=== PATIENT | male | born 1995 | race Caucasian/White ===

== ENCOUNTER 2022-08-13 18:00 | Emergency (ER) | payer OTHER, SELFPAY ==
[2022-08-13 18:07] VITALS: BP 110/62; PULSE 72; RESP 18; TEMP 36.7; O2SAT 98; BMI 23.9
--- NOTE | 2022-08-13 18:27 | PC.NURSE ---
this nurse called [facility] and they state that pt was given dc instructions that the case preparer and liner will be calling him on monday for follow up appt pt was at [facility] fac[facility] since 0 today and multiple facilities were called to attempt to get patient tx and he was denied at each facility pt was instructed to answer the phone on monday and it would be a case preparer and liner calling him
--- NOTE | 2022-08-13 18:39 | ED.PSYCH1 ---
HPI - Psych General Chief Complaint: Psychiatric Symptoms Stated Complaint: SUIDICAL Time Seen by Provider: 08/13/22 18:38 Source: Reports patient Mode of arrival: ambulance Limitations: Reports no limitations History of Present Illness HPI Narrative: patient says that he is anxious and needs to see a counselor. He was just evaluated at [facility] and did not meet criteria for admission and was discharged home an hour ago. he then apparently called 911 from somewhere in [place] and demanded to be brought to our ED for evaluation. he told us that he is not suicidal or homicidal. he said that he got out of [place] [facility], uses drugs and can't take care of myself and need to live in a psychiatric hospital . [facility] was called by one of our ED nurses and we learned that the patient did not meet criteria for admission after a three day stay and he was discharged and given a ride back to [place]. he is supposed to receive a call from [facility] counseling regarding a follow up appointment. He said that he has intermittently attended counseling and been in and out of [place] due to drug use/substance abuse. Related Data Allergies Allergy/AdvReac Type Severity Reaction Status Date / Time penicillin G AdvReac Intermediate Verified 08/13/22 18:07 Exam Narrative Exam Narrative: Nurses notes and vital signs reviewed and patient is not hypoxic. AFEBRILE General: Well-appearing and in no apparent distress. Skin: Warm, dry, no pallor noted. No rash. Head: Normocephalic, atraumatic. Neck: Supple, non-tender. Eye: Pupils are equal, round and EOMI. No scleral icterus. Ears, Nose, Mouth, and Throat: Oral mucosa is moist Cardiovascular: Regular Rate and Rhythm without murmur, gallop or rub. Respiratory: No accessory muscle use or respiratory distress. Lungs are clear to auscultation, no wheezing, rales or rhonchi Back: No midline thoracic or lumbar vertebral tenderness. No CVA tenderness Musculoskeletal: normal ROM, no calf or popliteal tenderness, no lower extremity edema/swelling GI: Abdomen is soft, non-distended. Normal bowel sounds. No tenderness to palpation. No rebound, guarding, or rigidity noted. Neurological: A&O x4. No cranial nerve dysfunction observed. No truncal ataxia. Moves all extremities. Sensation intact. Psychiatric: Cooperative and interactive. Normal mood and affect. Constitutional Vital Signs - 24 hr 08/13/22 18:07 Temperature 98.0 F Pulse Rate [Monitor] 72 Respiratory Rate 18 Blood Pressure [Left Arm] 110/62 Pulse Oximetry 98 Oxygen Delivery Method Room Air Course Vital Signs Vital signs: Vital Signs Temperature 98.0 F 08/13/22 18:07 Pulse Rate 72 08/13/22 18:07 Respiratory Rate 18 08/13/22 18:07 Blood Pressure 110/62 08/13/22 18:07 Pulse Oximetry 98 08/13/22 18:07 Oxygen Delivery Method Room Air 08/13/22 18:07 Temperature 98.0 F 08/13/22 18:07 Pulse Rate 72 08/13/22 18:07 Respiratory Rate 18 08/13/22 18:07 Blood Pressure 110/62 08/13/22 18:07 Pulse Oximetry 98 08/13/22 18:07 Oxygen Delivery Method Room Air 08/13/22 18:07 MDM - Psych MDM Narrative Medical decision making narrative: Patient and I talked about his assessment at [facility] and that he did not meet criteria for admission. I explained to him that [facility] would be reaching out to him on MondayAugust 15 to schedule out-patient follow up. I offered to prescribe him medication for anxiety - hydroxyzine. He is discharged home with that prescription and recommendation to see [facility] counseling as scheduled. Discharge Plan Discharge Chief Complaint: Psychiatric Symptoms Clinical Impression: Acute anxiety, Depression Patient Disposition: Home, Self-Care Time of Disposition Decision: 18:49 Instructions: Anxiety (ED) Stand Alone Forms: Portal Instructions Referrals: Krystian Trujillo MD [Primary Care Provider] - 1 week
--- NOTE | 2022-08-13 18:55 | PC.NURSE ---
PT STATES HE IS LOST ON WHAT TO DO AND DOES NOT REMEMBER WHAT THE COUSELORS TOLD HIM TO DO TODAY STATES HE THINKS HE HEARS PEOPLE TALK TO HIM
[2022-08-13 20:00] VITALS: BP 111/72; PULSE 88; RESP 18; O2SAT 998
--- NOTE | 2022-08-13 21:06 | ECG_ITS ---
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
[2022-08-13 21:17] LABS: Basophils Percent Auto 0.5 % (0.2-2.0); Eosinophils Absolute Auto 0.1 10^3/uL (0.0-0.7); Eosinophils Percent Auto 1.4 % (0.9-7.0); Hematocrit 39.5 % (42.0-54.0); Hemoglobin 13.1 g/dL (14.0-18.0); Immature Granulocytes Abs Auto 0.01 10^3/uL (0.00-0.03); Immature Granulocytes Pct Auto 0.2 % (0.0-0.5); Lymphocytes Absolute Auto 2.6 10^3/uL (1.2-3.8); Lymphocytes Percent Auto 47.1 % (20.5-60.0); Mean Corpuscular HGB Conc 33.2 g/dL (29.9-35.2); Mean Corpuscular Hemoglobin 29.2 pg (25.9-34.0); Mean Platelet Volume 10.5 fL (9.5-13.5); Monocytes Absolute Auto 0.6 10^3/uL (0.3-0.8); Monocytes Percent Auto 11.4 % (1.7-12.0); Neutrophils Absolute Auto 2.2 10^3/uL (1.4-6.5); Neutrophils Percent Auto 39.4 % (43.0-75.0); Platelet Count 237 10^3/uL (150-450); Red Blood Count 4.49 10^6/uL (4.70-6.10); Red Cell Distribution Width 12.8 % (11.0-15.0); White Blood Count 5.6 10^3/uL (4.0-11.0)
[2022-08-13 21:33] LABS: Salicylate <2.8 mg/dL (<=19.9)
[2022-08-13 21:37] LABS: Anion Gap 11.3; Carbon Dioxide 29.9 mmol/L (21.0-32.0); Chloride 104 mmol/L (98-107); Estimated GFR (African America >60 (>=60); Glucose 112 mg/dL (74-106); Potassium 3.2 mmol/L (3.5-5.1); Sodium 142 mmol/L (136-145)
[2022-08-13 21:38] LABS: BUN Creatinine Ratio 11.3; Calcium 8.8 mg/dL (8.5-10.1); Estimated GFR (Non-African Ame >60 (>=60)
[2022-08-13 21:47] LABS: Acetaminophen <2.0 ug/mL (10.0-30.0)
[2022-08-13 21:48] LABS: Ethanol <3 mg/dL
[2022-08-13 22:30] LABS: Bilirubin Urine NEGATIVE (NEGATIVE); Blood Urine NEGATIVE (NEGATIVE); Clarity Urine CLEAR (CLEAR); Color Urine LT. YELLOW (YELLOW); Glucose Urine UA NEGATIVE (NEGATIVE); Ketones Urine NEGATIVE (NEGATIVE); Leukocyte Esterase Urine NEGATIVE (NEGATIVE); Nitrite Urine NEGATIVE (NEGATIVE); Protein Urine NEGATIVE (NEG/TRACE); Urobilinogen Urine 0.2 EU/dL (0.2-1.0)
[2022-08-13 22:32] LABS: Urine Microscopic Indicated NO
[2022-08-13 22:43] LABS: Cannabinoid Screen Urine POSITIVE (NEGATIVE); Cocaine Screen Urine NEGATIVE (NEGATIVE); Phencyclidine Screen Urine NEGATIVE (NEGATIVE)
[2022-08-13 22:44] LABS: Amphetamine Screen Urine POSITIVE (NEGATIVE); Barbiturates Screen Urine NEGATIVE (NEGATIVE); Benzodiazepines Screen Urine NEGATIVE (NEGATIVE); Buprenorphine Screen Urine NEGATIVE (NEGATIVE); Methadone Screen Urine NEGATIVE (NEGATIVE); Methamphetamines Screen Urine POSITIVE (NEGATIVE); Opiate Screen Urine NEGATIVE (NEGATIVE); Oxycodone Screen Urine NEGATIVE (NEGATIVE); Tricyclic Antidepressant Urine NEGATIVE (NEGATIVE)
[2022-08-13 23:33] VITALS: BP 109/66; PULSE 98; RESP 18; TEMP 36.6; O2SAT 98
== END 2022-08-13 23:49 ==
PROVIDERS: Emergency Provider Internal Medicine
DX: R45.851 Suicidal ideations (principal); F32.A Depression, unspecified; F12.90 Cannabis use, unspecified, uncomplicated; F15.90 Other stimulant use, unspecified, uncomplicated; F41.9 Anxiety disorder, unspecified
CPT/HCPCS: 36415; 80048; 80179; 80307; 80320; 80329; 81003; 85025; 93005; 99285

== ENCOUNTER 2022-09-13 17:53 | Emergency (ER) | payer OTHER, SELFPAY ==
[2022-09-13] VITALS (10 sets, daily range): BP systolic 98–123; BP diastolic 48–73; PULSE 60–83; RESP 14–18; TEMP 36.6–36.8; O2SAT 97–98
--- NOTE | 2022-09-13 18:05 | ED.PSYCH1 ---
HPI - Psych General Chief Complaint: Psychiatric Symptoms Stated Complaint: Suicidal Time Seen by Provider: 09/13/22 18:02 Source: Reports patient Mode of arrival: EMS Limitations: Reports no limitations History of Present Illness HPI Narrative: Patient is a 27-year-old male who is presenting to the Emergency Room secondary to suicidal ideation and plan. Patient has been in and out of [facility] throughout the year for mental health Reasons. Patient is a extremely poor historian. Patient was refusing to speak to myself, nursing staff, security when he initially arrived, stating just call the police I'm not doing anything Patient was able to be the escalated by security staff. Patient finally agreed to take his clothes off and be placed in a gown. Patient states that he thinks he has depression, anxiety, bipolar, he is not certain what he's been diagnosed with. Patient says that he is getting better taking his medications daily, but not perfect. Patient also has a history of substance abuse. Patient just a crystal meth and marijuana 2 days ago, but patient states I am sober today patient was at home, smoking marijuana today reportedly and mother called the police. When police arrived, patient stated that he wanted to cut himself and he just wants to . When I asked patient if he said this, he stated that yes I did. Patient wants to be placed back to [facility] again. Patient states that when he's in the mental health institutions, they do nothing for me patient states that he does not want to live, he wants to be placed in mental health facility, he wants to be sober and is better than when he has been in the past. Patient has no obvious signs of cutting, no areas of bleeding today. . All systems are negative except as noted/marked. All systems reviewed and otherwise negative. . Nurses note and vital signs reviewed and patient is not hypoxic. General: The patient appears well and in no apparent distress. Patient is resting comfortably on cart. Patient is not toxic, lethargic, or listless Skin: Warm, dry, no pallor noted. There is no rash noted. No petechiae, purpura. Head: Normocephalic, atraumatic Eye: Normal conjunctiva, no drainage, EOMI. PERRL Ears, Nose, Mouth, and Throat: oral mucosa is moist. Nares patent. Cardiovascular: Regular Rate and Rhythm, no murmur, gallop, rub Respiratory: Patient is in no distress, no accessory muscle use, lungs are clear to auscultation, no wheezing, rales or rhonchi Back: non-tender, no CVA tenderness bilaterally to percussion. No CT LS midline pain GI: soft, no tenderness to palpation, no masses appreciated. No rebound, guarding, or rigidity noted. No flank pain bilateral, No distention Musculoskeletal: Patient has full range of motion of all of the extremities, no motor, sensory, or focal neurological deficits Neurological: A&O x3, normal speech, Agitated, anxious, currently refusing Ativan tablet. Psychiatric: Cooperative, Patient is suicidal, not homicidal. Patient has a plan of cutting himself and states I just want to Related Data Allergies Allergy/AdvReac Type Severity Reaction Status Date / Time penicillin G AdvReac Intermediate Verified 09/13/22 18:02 Exam Constitutional Vital Signs, click to edit/add: Last Vital Signs Temp 98 F 09/13/22 18:23 Pulse 83 09/13/22 18:23 Resp 18 09/13/22 18:23 BP 123/73 09/13/22 18:23 O2 Del Method Room Air 09/13/22 18:23 Course Vital Signs Vital signs: Vital Signs Temperature 98 F 09/13/22 18:23 Pulse Rate 83 09/13/22 18:23 Respiratory Rate 18 09/13/22 18:23 Blood Pressure 123/73 09/13/22 18:23 Oxygen Delivery Method Room Air 09/13/22 18:23 Temperature 98 F 09/13/22 18:23 Pulse Rate 83 09/13/22 18:23 Respiratory Rate 18 09/13/22 18:23 Blood Pressure 123/73 09/13/22 18:23 Oxygen Delivery Method Room Air 09/13/22 18:23 MDM - Psych MDM Narrative Medical decision making narrative: Patient is family agreeing to have lab work done. Patient is drinking water so he can urinate, patient says he cannot currently urinate. Patient wants to be admitted back to [facility] if possible, stating that he is not stable. Patient is going to be transitioned to Dr. Reyna at 1900 for review of patient's lab work and urine sample, medical clearance, and consult with [facility] for patient's final disposition if he should be hospitalized or most likely he will be institutionalized again. Patient at this time is going to be admitted to the hospital will agree. When patient initially arrived and was being very hostile, agitated and verbally, a pink slip was signed by myself secondary to his, so wanted to cut himself and . Critical care time 35 minutes exclusive from separate billable procedures that were performed. The following was considered in the determination of critical care but not limited to the level of medical decision making, intensive cardiac and/or respiratory monitoring, frequent vital sign monitoring, evaluation of laboratory studies, evaluation of radiographic studies, oxygen monitoring, and constant monitoring and speaking to family at bedside Lab Data Labs: Lab Results 09/13/22 Range/Units 18:30 WBC 5.9 (4.0-11.0) 10^3/uL RBC 4.69 L (4.70-6.10) 10^6/uL Hgb 14.1 (14.0-18.0) g/dL Hct 41.6 L (42.0-54.0) % MCV 88.7 (80.0-94.0) fL MCH 30.1 (25.9-34.0) pg MCHC 33.9 (29.9-35.2) g/dL RDW 13.4 (11.0-15.0) % Plt Count 236 (150-450) 10^3/uL MPV 10.2 (9.5-13.5) fL Neut % (Auto) 52.8 (43.0-75.0) % Lymph % (Auto) 35.2 (20.5-60.0) % [place] % (Auto) 10.6 (1.7-12.0) % Eos % (Auto) 0.9 (0.9-7.0) % Baso % (Auto) 0.3 (0.2-2.0) % Neut # (Auto) 3.1 (1.4-6.5) 10^3/uL Lymph # (Auto) 2.1 (1.2-3.8) 10^3/uL [place] # (Auto) 0.6 (0.3-0.8) 10^3/uL Eos # (Auto) 0.1 (0.0-0.7) 10^3/uL Baso # (Auto) 0.0 (0.0-0.1) 10^3/uL Abs Immat Gran (auto) 0.01 (0.00-0.03) 10^3/uL Imm/Tot Granulo (auto) 0.2 (0.0-0.5) % Discharge Plan Discharge Patient Disposition: Still a Patient
--- NOTE | 2022-09-13 18:17 | ECG_ITS ---
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
[2022-09-13 18:42] LABS: Basophils Percent Auto 0.3 % (0.2-2.0); Eosinophils Absolute Auto 0.1 10^3/uL (0.0-0.7); Eosinophils Percent Auto 0.9 % (0.9-7.0); Hematocrit 41.6 % (42.0-54.0); Hemoglobin 14.1 g/dL (14.0-18.0); Immature Granulocytes Abs Auto 0.01 10^3/uL (0.00-0.03); Immature Granulocytes Pct Auto 0.2 % (0.0-0.5); Lymphocytes Absolute Auto 2.1 10^3/uL (1.2-3.8); Lymphocytes Percent Auto 35.2 % (20.5-60.0); Mean Corpuscular HGB Conc 33.9 g/dL (29.9-35.2); Mean Corpuscular Hemoglobin 30.1 pg (25.9-34.0); Mean Corpuscular Volume 88.7 fL (80.0-94.0); Mean Platelet Volume 10.2 fL (9.5-13.5); Monocytes Absolute Auto 0.6 10^3/uL (0.3-0.8); Monocytes Percent Auto 10.6 % (1.7-12.0); Neutrophils Absolute Auto 3.1 10^3/uL (1.4-6.5); Neutrophils Percent Auto 52.8 % (43.0-75.0); Platelet Count 236 10^3/uL (150-450); Red Blood Count 4.69 10^6/uL (4.70-6.10); Red Cell Distribution Width 13.4 % (11.0-15.0); White Blood Count 5.9 10^3/uL (4.0-11.0)
[2022-09-13 18:56] LABS: Alanine Aminotransferase 17 U/L (16-63); Albumin Globulin Ratio 1.2; Albumin Level 4.2 g/dL (3.4-5.0); Alkaline Phosphatase 50 U/L (46-116); Anion Gap 10.6; Aspartate Amino Transferase 24 U/L (15-37); BUN Creatinine Ratio 8.4; Bilirubin Total 1.6 mg/dL (0.2-1.0); Calcium 9.1 mg/dL (8.5-10.1); Carbon Dioxide 28.2 mmol/L (21.0-32.0); Chloride 101 mmol/L (98-107); Estimated GFR (African America >60 (>=60); Estimated GFR (Non-African Ame >60 (>=60); Ethanol <3 mg/dL; Globulin 3.5 g/dL; Glucose 95 mg/dL (74-106); Magnesium 2.2 mg/dL (1.8-2.4); Potassium 3.8 mmol/L (3.5-5.1); Sodium 136 mmol/L (136-145); Total Protein 7.7 g/dL (6.4-8.2)
[2022-09-13 19:13] LABS: Salicylate <2.8 mg/dL (<=19.9)
[2022-09-13 19:15] LABS: Acetaminophen <2.0 ug/mL (10.0-30.0)
--- NOTE | 2022-09-13 19:33 | PC.NURSE ---
Pt states he was released from a mental health facility in [facility] on 08/23/22. He is staying with his mother who he states hates him. He says he has applied for disability as he feels he can't look after himself anymore as he says he will get into drugs and forget to take his medication and eat. He says nothing ever works out for him and that he really doesn't want to live any more. He states that he finds no enjoyment in anything anymore. He wants to be admitted to a mental health facility. Today, he was smoking and his mother thought he was doing drugs and said she was kicking him out. Pt made a statement that he was going to cut himself and the police were called. [facility] then brought him to the hospital
[2022-09-13 20:15] LABS: Bilirubin Urine NEGATIVE (NEGATIVE); Blood Urine NEGATIVE (NEGATIVE); Clarity Urine SL CLOUDY (CLEAR); Color Urine YELLOW (YELLOW); Glucose Urine UA NEGATIVE (NEGATIVE); Ketones Urine NEGATIVE (NEGATIVE); Leukocyte Esterase Urine NEGATIVE (NEGATIVE); Nitrite Urine NEGATIVE (NEGATIVE); Protein Urine NEGATIVE (NEG/TRACE); pH Urine 6.5 (5.0-9.0)
[2022-09-13 20:23] LABS: Urine Microscopic Indicated NO
[2022-09-13 20:47] LABS: Cannabinoid Screen Urine POSITIVE (NEGATIVE); Cocaine Screen Urine NEGATIVE (NEGATIVE); Methamphetamines Screen Urine POSITIVE (NEGATIVE); Phencyclidine Screen Urine NEGATIVE (NEGATIVE)
[2022-09-13 20:48] LABS: Amphetamine Screen Urine NEGATIVE (NEGATIVE); Barbiturates Screen Urine NEGATIVE (NEGATIVE); Benzodiazepines Screen Urine NEGATIVE (NEGATIVE); Buprenorphine Screen Urine NEGATIVE (NEGATIVE); Methadone Screen Urine NEGATIVE (NEGATIVE); Opiate Screen Urine NEGATIVE (NEGATIVE); Oxycodone Screen Urine NEGATIVE (NEGATIVE); Tricyclic Antidepressant Urine NEGATIVE (NEGATIVE)
--- NOTE | 2022-09-13 21:08 | PC.NURSE ---
[facility] hotline called . Face sheet and pink slip faxed to them.
--- NOTE | 2022-09-13 22:03 | PC.NURSE ---
Smita from [facility], called and wanted to do a video conference via the iphone . Pt was initially responsive to this and then told her he didn't want to talk to anyone and put the phone down.
== END 2022-09-14 01:20 ==
PROVIDERS: Emergency Medicine; Emergency Provider Emergency Medicine
DX: R45.851 Suicidal ideations (principal); F32.A Depression, unspecified; F41.9 Anxiety disorder, unspecified; R82.5 Elevated urine levels of drugs, medicaments and biological substances
CPT/HCPCS: 36415; 80053; 80179; 80307; 80320; 80329; 81003; 83690; 83735; 85025; 93005; 99285